=== PATIENT | female | born 1970 | race Caucasian/White ===

== ENCOUNTER 2023-03-30 19:07 | Emergency (ER) | payer MEDICAID, OTHER ==
[~2023-03-30] VITALS: Ht 157.5 cm; Wt 66.7 kg
[2023-03-30 20:38] VITALS: BP 138/87
[2023-03-30] MEDS ORDERED: AMOX-430 PO (20:52)
[2023-03-30] MEDS ORDERED: AMOX/CLAVULANATE 875 MG TABLET ONE (20:52)
[2023-03-30] MEDS ORDERED: TDAP [DIPH/PERTUSSIS/TET] 0.5 ML VIAL IM ONE ×2 (20:52→21:00)
[2023-03-30] MEDS ORDERED: AMOX/CLAVULANATE 875 MG TABLET PO ONE (21:00)
== END 2023-03-30 21:05 | disposition home or self-care (01) ==
LOC: ER 19:10
DX: S61.451A Open bite of right hand, initial encounter (principal); W54.0XXA Bitten by dog, initial encounter; Y93.89 Activity, other specified; Y92.89 Other specified places as the place of occurrence of the external cause; Y99.8 Other external cause status
CPT/HCPCS: 90715